=== PATIENT | female | born 1950 | race Caucasian/White ===

== ENCOUNTER → 2023-09-30 | Outpatient (REF) | payer MEDICARE ==
[2023-09-30 18:06] LABS: APPEARANCE, URINE HAZY (CLEAR); BACTERIA, URINE AUTO NEGATIVE (NEGATIVE); BILIRUBIN, URINE AUTO NEGATIVE (NEGATIVE); BLOOD, URINE BLOOD NEGATIVE (NEGATIVE); COLOR, URINE STRAW (YELLOW); GLUCOSE, URINE (UA) AUTO NEGATIVE (NEGATIVE); KETONE, URINE AUTO NEGATIVE (NEGATIVE); LEUKOCYTE ESTERASE, URINE AUTO 3+ (NEGATIVE); MUCUS, URINE SMALL (NEGATIVE); NITRITE, URINE AUTO NEGATIVE (NEGATIVE); PROTEIN, URINE AUTO NEGATIVE (NEGATIVE); RBC, URINE AUTO 0 /HPF (0-3); SPECIFIC GRAVITY URINE AUTO 1.003 (1.002-1.035); SQUAMOUS EPITHELIAL CELL UR AU 0 /HPF (0-6); UROBILINOGEN, URINE AUTO 0.2 mg/dL (0.0-2.0); WBC, URINE AUTO 82 /HPF (0-3)
== END ==
LOC: M SMT 17:02
PROVIDERS: ATTEND Nurse Practitioner Family
DX: N39.0 Urinary tract infection, site not specified (principal)

== ENCOUNTER → 2023-10-08 | Outpatient (REF) | payer MEDICARE, OTHER ==
[2023-10-08 18:38] LABS: APPEARANCE, URINE CLEAR (CLEAR); BACTERIA, URINE AUTO NEGATIVE (NEGATIVE); BILIRUBIN, URINE AUTO NEGATIVE (NEGATIVE); BLOOD, URINE BLOOD NEGATIVE (NEGATIVE); COLOR, URINE YELLOW (YELLOW); GLUCOSE, URINE (UA) AUTO NEGATIVE (NEGATIVE); KETONE, URINE AUTO NEGATIVE (NEGATIVE); LEUKOCYTE ESTERASE, URINE AUTO NEGATIVE (NEGATIVE); MUCUS, URINE SMALL (NEGATIVE); NITRITE, URINE AUTO NEGATIVE (NEGATIVE); PROTEIN, URINE AUTO NEGATIVE (NEGATIVE); RBC, URINE AUTO 0 /HPF (0-3); SPECIFIC GRAVITY URINE AUTO 1.004 (1.002-1.035); SQUAMOUS EPITHELIAL CELL UR AU 0 /HPF (0-6); UROBILINOGEN, URINE AUTO 0.2 mg/dL (0.0-2.0); WBC, URINE AUTO 0 /HPF (0-3)
== END ==
LOC: M SMT 17:19
PROVIDERS: ATTEND Urology
DX: R33.9 Retention of urine, unspecified (principal)

== ENCOUNTER → 2023-10-31 | Outpatient (REF) | payer MEDICARE, OTHER ==
[~2023-10-31] MED LIST: D-MA500C2 PO; HERBS; HM C500T4 PO; NITR50CA34 PO; [UNRECOGNIZED DRUG - OTHER]; [UNRECOGNIZED DRUG - OTHER]
[2023-10-31 19:35] LABS: APPEARANCE, URINE HAZY (CLEAR); BACTERIA, URINE AUTO NEGATIVE (NEGATIVE); BILIRUBIN, URINE AUTO NEGATIVE (NEGATIVE); BLOOD, URINE BLOOD NEGATIVE (NEGATIVE); COLOR, URINE STRAW (YELLOW); GLUCOSE, URINE (UA) AUTO NEGATIVE (NEGATIVE); KETONE, URINE AUTO NEGATIVE (NEGATIVE); LEUKOCYTE ESTERASE, URINE AUTO 3+ (NEGATIVE); MUCUS, URINE SMALL (NEGATIVE); NITRITE, URINE AUTO NEGATIVE (NEGATIVE); PROTEIN, URINE AUTO NEGATIVE (NEGATIVE); RBC, URINE AUTO 2 /HPF (0-3); SPECIFIC GRAVITY URINE AUTO 1.003 (1.002-1.035); SQUAMOUS EPITHELIAL CELL UR AU 0 /HPF (0-6); UROBILINOGEN, URINE AUTO 0.2 mg/dL (0.0-2.0); WBC, URINE AUTO 59 /HPF (0-3)
== END ==
LOC: M SMT 17:01
PROVIDERS: ATTEND Urology
DX: T19.1XXD Foreign body in bladder, subsequent encounter (principal); Z79.899 Other long term (current) drug therapy

== ENCOUNTER 2024-01-12 07:10 | Day surgery (SDC) | payer MEDICARE, OTHER ==
[~2024-01-12] VITALS: Ht 152.4 cm; Wt 51.3 kg
[~2024-01-12 07:10] MED LIST changes: +ceFAZolin SOD 2 GM in IV 1 EA IV ONE
[2024-01-12] MEDS ORDERED: propofoL 200 MG/20 ML VIAL As Ordered ONE (07:56)
[2024-01-12] MEDS ORDERED: ACETAMINOPHEN 1000MG 100ML IV BAG As Ordered ONE (07:56)
[2024-01-12] MEDS ORDERED: LIDOCAINE 2% 100MG/5ML SDV (FOR ANES.) As Ordered ONE (07:56)
[2024-01-12] MEDS ORDERED: ROCURONIUM BROMIDE 50MG/5ML VIAL As Ordered ONE (07:56)
[2024-01-12] MEDS ORDERED: SUGAMMADEX SODIUM 500 MG/5 ML VIAL (BRIDION) As Ordered ONE (07:57)
[2024-01-12] MEDS ORDERED: ONDANSETRON 4MG 2ML VIAL As Ordered ONE (07:57)
[2024-01-12] MEDS ORDERED: fentaNYL 100 MCG/2 ML INJECTION As Ordered ONE (07:57)
[2024-01-12] MEDS: LR 1,000 ML IV SCH (08:02)
[2024-01-12] MEDS: CIPROFLOXACIN 400 MG in IV 1 EA IV ONE (08:22)
[2024-01-12] MEDS ORDERED: HYDROmorphone HCL 2MG/ML 1ML VIAL As Ordered ONE (08:49)
[2024-01-12] MEDS: LIDOCAINE 1% SDV 30ML VIAL As Ordered ONE (09:44)
[2024-01-12] MEDS ORDERED: fentaNYL 100 MCG/2 ML INJECTION IV PRN (09:50)
[2024-01-12] MEDS ORDERED: LR 1,000 ML IV SCH (09:50)
[2024-01-12] MEDS ORDERED: HYDROMORPHONE HCL 0.5 MG/ 0.5 ML SYRINGE IV PRN (09:50)
[2024-01-12] MEDS ORDERED: oxyCODONE 5MG TAB PO PRN (09:50)
[2024-01-12] MEDS ORDERED: PYRI1TAB5 PO (10:13)
[2024-01-12] MEDS ORDERED: HYDR-3713 PO (10:13)
[2024-01-12] MEDS ORDERED: OXYB5TAB14 PO (10:13)
[2024-01-12] MEDS: ONDANSETRON 4MG 2ML VIAL IV PRN (10:25)
[2024-01-12] MEDS: METOCLOPRAMIDE INJ 10MG/2ML VIAL IV PRN (11:10)
[2024-01-12] MEDS: PROMETHAZINE 25MG/ML 1ML VIAL IV PRN (13:48)
[2024-01-12 14:55] VITALS: BP 136/73; TEMP 96.5; O2SAT 100
== END 2024-01-12 15:26 | disposition home or self-care (01) ==
LOC: M SDC 07:10
PROVIDERS: ATTEND Urology
DX: T83.719A Erosion of other prosthetic materials to surrounding organ or tissue, initial encounter (principal); Y76.2 Prosthetic and other implants, materials and accessory obstetric and gynecological devices associated with adverse incidents; Z85.828 Personal history of other malignant neoplasm of skin; Z90.710 Acquired absence of both cervix and uterus
CPT/HCPCS: 57287; C1769; J0131; J0665; J0744; J1100; J1170; J2405; J2550; J2765; J3010